=== PATIENT | female | born 1980 | race Caucasian/White ===

== ENCOUNTER 2017-01-18 11:51 | Day surgery (SDC) | payer OTHER ==
--- NOTE | 2017-01-18 12:45 | ERNOTE ---
ER Female HPI Date of Service: 01/18/17 Stated Complaint: 12 WEEKS ,BLEEDING Time Seen by Provider: 01/18/17 12:06 Immunizations: IMMUNIZATION HX Immunizations Up to Date Yes History of Influenza Vaccine Yes Hx Pneumococcal Vaccination No Allergies/Adverse Reactions: Allergies No Known Allergies Allergy (Unverified 04/09/14 10:41) Home Medications: HOME MEDICATIONS Vits96/Iron Fum/Folic [ S] 1 tab PO DAILY 04/09/14 [Last Taken Unknown] - History of Present Illness Narrative: Pt. comes in with c/o cramping and bleeding in . Pt. states that she thinks she may be 12 weeks but took her first test 6 weeks ago when she became nauseated, but states that she has had intermittent scant bleeding ever since October when she had her IUD removed. Pt. is O pos blood type . Pt. to have first visit tomorrow and states that cramping started yesterday. Review of Systems - Review of Systems Constitutional: Present: no symptoms reported. Absent: recent illness, fever, chills, weakness, fatigue, malaise EYE: Present: no symptoms reported ENT: Present: no symptoms reported Respiratory: Present: no symptoms reported. Absent: shortness of breath, cough , wheezing Cardiology: Present: no symptoms reported. Absent: chest pain, palpitations, edema Gastrointestinal/Abdominal: Present: no symptoms reported. Absent: nausea, vomiting, diarrhea Genitourinary: Present: pain - cramping intermittent Musculoskeletal: Present: no symptoms reported. Absent: back pain, joint pain Skin: Present: no symptoms reported Neurological: Present: no symptoms reported. Absent: headache, dizziness/light- headedness, numbness, tingling All Other Systems: All systems neg except as marked - Patient's Past Medical History Patient History - Medical: No pertinent hx Patient History - Cardiac/Respiratory: No pertinent hx Patient History - Cancer: No Hx of Cancer Patient History - Surgical Procedures: No surgical history Patient History - Other: None - Social History Living Situations: home Abuse History: No History of abuse Psych History: No pertinent hx Smoking Status: Current every day smoker Have you smoked in the past 12 months: No Do you dip or chew tobacco: No Alcohol Use: none Drug Use: none - Immunizations Immunizations Up to Date: Yes Hx Pneumococcal Vaccination: No History of Influenza Vaccine: Yes Physical Exam - Physical Exam General Appearance: Present: wd/wn, alert, no apparent distress Head Exam: Present: normal inspection, no evidence of injury Eye Exam: Normal inspection: bilateral, PERRL: bilateral, EOMI: bilateral Ears, Nose, Throat: Present: normal ENT inspection, normal pharynx Neck: Present: normal inspection, nontender. Absent: lymphadenopathy (R), lymphadenopathy (L) Respiratory: Present: no respiratory distress, normal breath sounds, no accessory muscle use, chest nontender, lungs clear Cardiovascular/Chest: Present: regular rate, rhythm, no murmur, normal peripheral pulses Gastrointestinal/Abdominal: Present: normal bowel sounds, nontender, nondistended, soft, no organomegaly Pelvic Exam: Present: active bleeding, deferred Back Exam: Present: normal inspection, normal range of motion, no CVA tenderness , no vertebral tenderness Extremity Exam: Present: normal inspection, non-tender, normal range of motion, no edema Neurological Exam: Present: alert, oriented, normal mood/affect, no motor/ sensory deficits Skin Exam: Present: normal color, warm/dry. Absent: pallor, skin rash ED Progress - Date and Time Seen: Date and Time: 01/18/17 13:[address] Lainez and as pt. would like D and C over cytotec protocol he will come in and we will start IV and give fluids. - Results and Orders Patient's Lab Results:: I have reviewed the patient's lab results. - Vital Signs Patient's Vital Signs:: I have reviewed the patient's vital signs. Vital Signs: Vital Signs 01/18/17 12:06 Temperature 36.8 C Pulse Rate 89 Respiratory 86 H Rate Blood Pressure 136/82 O2 Sat by Pulse 99 Oximetry - CT/Ultrasound CT/Ultrasound Narrative: US notable for IUP 9week with no heart beat. - Progress/Reassessment Chief Complaint: Genitourinary Problem Progress:: Unchanged Departure Clinical Impression: demise - Departure Disposition: [facility] Condition: Fair Referrals: William Perrin MD [Primary Care Provider] -
[2017-01-18 13:01] LABS: Urine Bilirubin Negative (NEGATIVE); Urine Blood 250 /ul (NEGATIVE); Urine Ketone Negative (NEGATIVE); Urine Nitrite Negative (NEGATIVE); Urine Protein Negative (NEGATIVE); Urine Urobilinogen Normal (NORMAL); Urine pH 6.5 pH (5.0-7.0)
[2017-01-18 13:11] LABS: Urine Appearance Slightly Cloudy; Urine Bacteria 1+; Urine Color Yellow; Urine RBC 25-50 /hpf (0-5)
[2017-01-18 13:14] LABS: Hematocrit 41.2 % (37.0-47.0); Hemoglobin 13.8 gm/dL (12.5-16.0); Mean Cell Volume 93.6 fl (78-100); Mean Corpuscular Hemoglobin 31.4 pg (27-31); Mean Corpuscular Hgb Conc 33.5 g/dl (32-36); Platelet Count 256 K/mm3 (150-450); Red Cell Distribution Width 11.5 % (11.5-14.0); White Blood Count 7.8 K/mm3 (4.0-10.5)
[2017-01-18 13:17] LABS: Anion Gap 14.3 mmol/L (6.8-13.8); BUN/Creatinine Ratio 17.2 (9.0-21.6); Bilirubin, Total 0.3 mg/dL (0.0-1.1); Ca. Corrected For Albumin 8.8 mg/dL (8.4-10.2); Calcium * 9.1 mg/dL (7.9-10.9); Carbon Dioxide 27.6 mmol/L (24-32.6); Potassium 3.9 mmol/L (3.4-4.6); Total Protein 7.9 gm/dL (6.2-8.2)
[2017-01-18 13:23] LABS: Total Cells Counted 100
[2017-01-18 13:25] LABS: Atypical (Reactive) Lymph 4 % (0-2); Eosinophil 1 % (0-3); Lymphocyte 28 % (20-51); Monocyte 9 % (0-9); Neutrophil 58 % (42-75); Neutrophil # 4.5 K/mm3 (1.3-6.0)
[2017-01-18 13:26] LABS: Platelet Estimate Normal (NORMAL); RBC Morphology Normal (NORMAL)
[2017-01-18] MEDS: RINGER'S SOLUTION,LACTATED 1,000 ML IV PRN ×2 (14:45→15:55)
[2017-01-18] MEDS ORDERED: LIDOCAINE HCL/EPINEPHRINE 50 ML VIAL IJ ONE (16:10)
--- NOTE | 2017-01-18 16:44 | OR ---
Operative Report - Dictated Report Narrative: DATE OF PROCEDURE: 01/18/2017 INDICATION: 36-year-old 2 para 1 with 9 week embryonic demise PREOPERATIVE DIAGNOSIS: 9 week embryonic demise POSTOPERATIVE DIAGNOSIS: Same PROCEDURE: Suction curettage SURGEON: Tommy Robledo D.O. [employer] OPERATOR: [place] ANESTHESIA: IV sedation with local paracervical block ESTIMATED BLOOD LOSS: Minimal URINE OUTPUT: Not recorded FLUID REPLACEMENT: 100 mL FINDINGS: 8 weeks size uterus with large amount of products of conception, uterus sounded to 8 cm SPECIMEN(S): Products of conception TECHNIQUE: Patient was taken to the operating room and placed in dorsal lithotomy position after adequate IV sedation. The anterior lip of the cervix was grasped with a long Allis clamp and paracervical block was given using 1% lidocaine with epinephrine. A 10 mm curved suction curet was inserted through the cervical canal into the uterine cavity. Suction was applied and the products of conception were removed. All instruments were removed from the cervix and vagina. Sponge, lap, instrument, needle count correct x 2. DISPOSITION: The patient was transferred to postanesthesia care unit in good condition.
[2017-01-18 17:49] VITALS: BP 111/61
[2017-01-18] MEDS ORDERED: IBUPROFEN 800 MG TABLET PO ONE (18:00)
[2017-01-18] MEDS ORDERED: IBUPROFEN 800 MG TABLET ONE (18:00)
== END 2017-01-18 14:03 | disposition home or self-care (01) ==
LOC: ER 11:51 → AMB 14:02
PROVIDERS: ATTEND Obstetrics & Gynecology
PROC: 10D17ZZ Extraction of Products of Conception, Retained, Via Natural or Artificial Opening (ICD-10-PCS; principal; 2017-01-18 16:00)
DX: O02.1 Missed abortion (principal); E55.9 Vitamin D deficiency, unspecified; F32.9 Major depressive disorder, single episode, unspecified; Z68.25 Body mass index [BMI] 25.0-25.9, adult; Z3A.09 9 weeks gestation of pregnancy